=== PATIENT | male | born 1945 | race Caucasian/White ===

== ENCOUNTER 2017-09-10 15:25 | Emergency (ER) | payer OTHER ==
[~2017-09-10 15:25] MED LIST: AMI10 PO; ASPI-715 PO; ATEN-65 PO; ATR80PT PO; AUG875 PO; AZI250 PO; AZIT500T47 PO; BEN20 PO; BUPR-147 PO; BUS10 PO; CYC10 PO; DUL20 PO; FAM20 PO; GEM600 PO; GEMF600T91 PO; GLI5 PO; HCTZ25 PO; HYDR-2954 PO; HYDR-2966 PO; HYDR-3074 PO; HYDR2TAB74 PO; HYDR473S4 PO; IBU800 PO; IBUP800T37 PO; INSU100C14 SQ; INSU100I35 SQ; KET10 PO; LANI SC; LANI SUBQ; LOR5/325 PO; METF-1 PO; METF-420 PO; NOR5/325 PO; NOVALOG SC; ONDA-2 PO; ONDA4TAB PO; PARO40TA86 PO; PEN250 PO; PER PO; PRE10 PO; PRE20 PO; PRE50 PO; PROAIRPT IH; PROXETINE PO; QUIN5TAB19 PO; ROSI2TAB11 PO; [UNRECOGNIZED DRUG - CODE] PO; [UNRECOGNIZED DRUG - OTHER]
[2017-09-10 15:31] VITALS: BP 134/110
[2017-09-10] MEDS ORDERED: ONDANSETRON 4 MG ODT TABDP SL ONE (15:45)
[2017-09-10] MEDS ORDERED: HYDR-4309 PO (15:56)
[2017-09-10] MEDS ORDERED: BACL-1 PO (15:56)
--- NOTE | 2017-09-10 15:57 | ER Report ---
History and Physical Time Seen By MD: 15:35 Hx. of Stated Complaint: LOWER BACK PAIN, L4-S1 - HERNIATED DISKS, PINCHING SIATIC NERVE FOR 2 DAYS HPI/ROS CHIEF COMPLAINT: Back pain HISTORY OF PRESENT ILLNESS: Pt is a 71-year-old male who presents the ED with complaint of back pain for the past day. 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 He has seen [facility] and spine for this and is trying to get some procedures approved through the [facility]. He states that he does get flareups intermittently but rarely needs to come in for this. He has not taken any medication at home for this. Patient states that he has had lecture on Vicodin in the past as well as steroids. He states that he will get intermittent numbness and tingling into his right leg. He also will note some intermittent numbness and tingling to his left leg. He has had some nausea recently which is related to the pain. He denies any vomiting. He denies any urinary symptoms. Patient has not noted any urinary or bowel incontinence. REVIEW OF SYSTEMS: Constitutional: No fever, no chills. Cardiovascular: No chest pain, no palpitations. Respiratory: No cough, no shortness of breath. Gastrointestinal: No abdominal pain, no vomiting. Genitourinary: No hematuria. Musculoskeletal: See history of present illness. Skin: No rashes. Neurological: No headache. Allergies: Coded Allergies: iodine (Verified Allergy, Severe, BLISTERING, 09/10/17) meperidine (Verified Allergy, Intermediate, REDNESS, 09/10/17) Home Meds Active Scripts Baclofen (BACLOFEN) 10 Mg Tablet, 10 MG PO TID, #15 TAB Prov:STEVIE DAVE PA-C 09/10/17 Hydrocodone Bit/Acetaminophen (NORCO 5-325 TABLET) 1 Each Tablet, 1 EACH PO Q4- 6H Y for PAIN, #10 TAB Prov:STEVIE DAVE PA-C 09/10/17 Reported Medications Insulin Glargine (LANTUS) 100 Unit/Ml Soln, 50 UNIT SUBQ BID, ML 10/06/16 Insulin Aspart 100 Un/Ml Pen (NOVOLOG FLEXPEN) 100 Unit/1 Ml Insuln.pen, 30 UNIT SQ 10/06/16 Ibuprofen (IBUPROFEN) 800 Mg Tablet, 1 TAB PO PRN, TAB 06/07/16 Duloxetine Hcl (CYMBALTA) 20 Mg Capcr, 20 MG PO QDAY, #5 CAP 06/07/16 Atorvastatin (LIPITOR) 80 Mg Tab, 1 TAB PO QDAY, TAB 06/07/16 Bupropion Hcl (BUPROPION HCL) 75 Mg Tablet, 150 MG PO QDAY, TAB 06/07/16 Valacyclovir Hcl (Valacyclovir) 1,000 Mg Tablet, 500 MG PO DAILY, 0 Refills 03/05/11 Atenolol (Atenolol) 25 Mg Tablet, 25 MG PO DAILY, 0 Refills 03/05/11 Paroxetine Hcl (Paroxetine Hcl) 40 Mg Tablet, 40 MG PO QDAY, 0 Refills 03/05/11 Hydrochlorothiazide (Hydrochlorothiazide) 25 Mg Tablet, 25 MG PO DAILY, 0 Refills 03/05/11 Buspirone Hcl (Buspar) 10 Mg Tablet, 10 MG PO BID, 0 Refills 03/05/11 Metformin Hcl (Glucophage) 1,000 Mg Tablet, 1000 MG PO BIDBS, 0 Refills 03/05/11 Reviewed Nurses Notes: Yes Old Medical Records Reviewed: Yes Hx Smoking: No Smoking Status: Never Smoker Hx Substance Use Disorder: No Hx Alcohol Use: No Constitutional Vital Sign - Last 24 Hours 09/10/17 15:31 Temp 99.4 Pulse 103 Resp 18 B/P (MAP) 134/110 Pulse Ox 93 O2 Delivery Room Air Physical Exam General Appearance: The patient is alert, has no immediate need for airway protection and no signs of toxicity. Patient appears to be in mild distress. Respiratory: There are no retractions, lungs are clear to auscultation. Cardiovascular: Regular rate and rhythm. Gastrointestinal: Abdomen is soft and non tender, no masses, bowel sounds normal. Neurological: Cranial nerves II through XII intact. Skin: Warm and dry, no rashes. Musculoskeletal: Neck is supple non tender. Extremities are nontender, nonswollen and have full range of motion. There is some pain with bilateral paravertebral lumbar areas. Full range of motion with some pain. Slightly positive left straight leg raise test noted. 2+ patellar reflexes bilaterally. DIFFERENTIAL DIAGNOSIS: After history and physical exam differential diagnosis was considered for back pain including but not limited to muscular pain, herniated disc, spine fracture, intra-abdominal causes and urinary tract infection. Medical Decision Making ED Course/Re-evaluation ED Course Discussed with patient that we can give him some pain relief and nausea relief here with Percocet 5/325 and Zofran 4 mg by mouth and will send him home with some medication to take as well. Follow-up with his primary care provider [facility] provider for further pain relief. Decision to Disposition Date: Sep 10, 2017 Decision to Disposition Time: 15:54 Depart Departure Latest Vital Signs Vital Signs Date Time Temp Pulse Resp B/P (MAP) Pulse Ox O2 Delivery O2 Flow Rate FiO2 09/10/17 15:31 99.4 103 18 134/110 93 Room Air Impression: Primary Impression: Chronic back pain Condition: Improved Disposition: HOME OR SELF-CARE New Scripts Baclofen (BACLOFEN) 10 Mg Tablet 10 MG PO TID, #15 TAB Prov: STEVIE DAVE PA-C 09/10/17 Hydrocodone Bit/Acetaminophen (NORCO 5-325 TABLET) 1 Each Tablet 1 EACH PO Q4-6H Y for PAIN, #10 TAB Prov: STEVIE DAVE PA-C 09/10/17 Patient Instructions: Back Pain (ED), Chronic Back Pain (ED) Additional Instructions: Rest, heat, ice. Follow-up with primary care provider and with a electronic specialist in 2-3 days. If having any worsening or concerning symptoms may return the Emergency Department. Problem Qualifiers Primary Impression: Chronic back pain Back pain location: low back pain Back pain laterality: unspecified Sciatica presence: with sciatica Sciatica laterality: sciatica of left side Qualified Codes: M54.42 - Lumbago with sciatica, left side; G89.29 - Other chronic pain STEVIE DAVE PA-C Sep 10, 2017 15:56
== END 2017-09-10 16:12 | disposition home or self-care (01) ==
LOC: ER 15:31
DX: M54.42 Lumbago with sciatica, left side (principal); G89.29 Other chronic pain
CPT/HCPCS: 99283; S0119

== ENCOUNTER 2018-07-19 18:17 | Emergency (ER) | payer OTHER ==
[~2018-07-19 18:17] MED LIST changes: +BACL-1 PO; +HYDR-653 PO
--- NOTE | 2018-07-19 18:30 | ER Report ---
History and Physical Time Seen By MD: 18:25 Hx. of Stated Complaint: suicidal ideation with access to plan. continued anxiety and chest pain HPI/ROS CHIEF COMPLAINT: Chest pain HISTORY OF PRESENT ILLNESS: 72-year-old male presents ambulatory to the ER complaining of chest pain. Patient under a great deal of anxiety. He's been having financial problems. His truck was repossessed. Last night he is expressing suicidal ideation and the police officers visited him. He spoke with his counselor on the phone for an hour and was not detained. Patient developed left-sided chest pain, sharp in nature, aggravated by breathing. Patient has a history of chronic low back pain. 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 REVIEW OF SYSTEMS: Respiratory: No cough, no dyspnea. Cardiovascular: As above Gastrointestinal: No vomiting, no abdominal pain. Musculoskeletal: No back pain. Allergies: Coded Allergies: iodine (Verified Allergy, Severe, BLISTERING, 09/10/17) meperidine (Verified Allergy, Intermediate, REDNESS, 09/10/17) Home Meds Active Scripts Baclofen (BACLOFEN) 10 Mg Tablet, 10 MG PO TID, #15 TAB Prov:STEVIE DAVE PA-C 09/10/17 Hydrocodone Bit/Acetaminophen (NORCO 5-325 TABLET) 1 Each Tablet, 1 EACH PO Q4- 6H PRN for PAIN, #10 TAB Prov:STEVIE DAVE PA-C 09/10/17 Reported Medications Insulin Glargine (LANTUS) 100 Unit/Ml Soln, 50 UNIT SUBQ BID, ML 10/06/16 Insulin Aspart 100 Un/Ml Pen (NOVOLOG FLEXPEN) 100 Unit/1 Ml Insuln.pen, 30 UNIT SQ 10/06/16 Ibuprofen (IBUPROFEN) 800 Mg Tablet, 1 TAB PO PRN, TAB 06/07/16 Duloxetine Hcl (CYMBALTA) 20 Mg Capcr, 20 MG PO QDAY, #5 CAP 06/07/16 Atorvastatin (LIPITOR) 80 Mg Tab, 1 TAB PO QDAY, TAB 06/07/16 Bupropion Hcl (BUPROPION HCL) 75 Mg Tablet, 150 MG PO QDAY, TAB 06/07/16 Valacyclovir Hcl (Valacyclovir) 1,000 Mg Tablet, 500 MG PO DAILY, 0 Refills 03/05/11 Atenolol (Atenolol) 25 Mg Tablet, 25 MG PO DAILY, 0 Refills 03/05/11 Paroxetine Hcl (Paroxetine Hcl) 40 Mg Tablet, 40 MG PO QDAY, 0 Refills 03/05/11 Hydrochlorothiazide (Hydrochlorothiazide) 25 Mg Tablet, 25 MG PO DAILY, 0 Refills 03/05/11 Buspirone Hcl (Buspar) 10 Mg Tablet, 10 MG PO BID, 0 Refills 03/05/11 Metformin Hcl (Glucophage) 1,000 Mg Tablet, 1000 MG PO BIDBS, 0 Refills 03/05/11 Past Medical/Surgical History Past medical history: Type II diabetes, insulin required, depression, hyperlipidemia, anxiety, hypertension, 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 Resp 23 B/P (MAP) 174/96 (122) 158/88 (111) O2 Delivery Room Air 07/19/18 07/19/18 07/19/18 07/19/18 18:32 18:45 18:47 19:00 Pulse 100 ??? Resp 33 B/P (MAP) ???/??? (6565) 162/90 (114) Pulse Ox 93 07/19/18 07/19/18 07/19/18 07/19/18 19:02 19:15 19:17 19:30 Pulse 91 93 B/P (MAP) 161/87 (111) 144/62 (89) Pulse Ox 93 92 07/19/18 07/19/18 07/19/18 07/19/18 19:32 19:45 19:47 19:52 Pulse 84 88 89 B/P (MAP) 141/71 (94) Pulse Ox 96 95 95 07/19/18 07/19/18 07/19/18 07/19/18 20:00 20:07 20:15 20:22 Pulse 80 91 B/P (MAP) 139/68 (91) 151/79 (103) Pulse Ox 95 95 07/19/18 07/19/18 07/19/18 07/19/18 20:30 20:37 20:45 20:52 Pulse 86 86 B/P (MAP) 157/74 (101) 156/83 (107) Pulse Ox 92 92 07/19/18 07/19/18 07/19/18 07/19/18 21:00 21:07 21:15 21:22 Pulse 86 86 B/P (MAP) 151/84 (106) 163/81 (108) Pulse Ox 93 92 07/19/18 07/19/18 07/19/18 07/19/18 21:30 21:37 21:45 21:50 Pulse 85 85 B/P (MAP) 149/86 (107) 163/83 (109) Pulse Ox 93 93 07/19/18 07/19/18 07/19/18 07/19/18 22:00 22:05 22:15 22:21 Pulse 89 B/P (MAP) 160/83 (108) 138/87 (104) Pulse Ox 92 93 O2 Delivery Room Air Physical Exam General Appearance: The patient is alert, has no immediate need for airway protection and no current signs of toxicity. Vital signs stable, afebrile, pulse ox normal HEENT: Pupils equal and round no injection. TMs normal, oropharynx with mild erythema Respiratory: Chest is non tender, lungs are clear to auscultation. No chest wall tenderness Cardiac: regular rate and rhythm Gastrointestinal: Abdomen is soft and non tender, no masses, bowel sounds normal. Musculoskeletal: Neck: Neck is supple and non tender. Extremities have full range of motion and are non tender. No edema, no calf tenderness Skin: No rashes or lesions. DIFFERENTIAL DIAGNOSIS: After history and physical exam differential diagnosis was considered for chest pain including but not limited to myocardial ischemia, pericarditis pulmonary embolus, chest wall pain, pleural inflammation and pulmonary infectious causes. Medical Decision Making Data Points Result Diagram: 07/19/18183407/19/182020 Laboratory Hematology Test 07/19/18 18:35 07/19/18 20:16 07/19/18 20:21 Red Blood Count 4.97 M/uL (4.00-5.60) Mean Corpuscular Volume 93.4 fL (80.0-96.0) Mean Corpuscular Hemoglobin 31.5 pg (26.0-33.0) Mean Corpuscular Hemoglobin Concent 33.8 g/dL (32.0-36.0) Red Cell Distribution Width 15.6 % (11.5-14.5) Mean Platelet Volume 8.3 fL (7.2-11.1) Neutrophils (%) (Auto) 63.0 % (39.4-72.5) Lymphocytes (%) (Auto) 22.3 % (17.6-49.6) Monocytes (%) (Auto) 8.5 % (4.1-12.4) Eosinophils (%) (Auto) 5.0 % (0.4-6.7) Basophils (%) (Auto) 1.2 % (0.3-1.4) Nucleated RBC Relative Count (auto) 0.1 /100WBC Neutrophils # (Auto) 6.5 K/uL (2.0-7.4) Lymphocytes # (Auto) 2.3 K/uL (1.3-3.6) Monocytes # (Auto) 0.9 K/uL (0.3-1.0) Eosinophils # (Auto) 0.5 K/uL (0.0-0.5) Basophils # (Auto) 0.1 K/uL (0.0-0.1) Nucleated RBC Absolute Count (auto) 0.01 K/uL D-Dimer Quantitative (PE/DVT) 0.35 ug/ml (0-0.50) Sodium Level 136 mmol/L (137-145) Potassium Level 4.0 mmol/L (3.5-5.0) Chloride Level 100 mmol/L (98-107) Carbon Dioxide Level 25 mmol/L (22-30) Blood Urea Nitrogen 24 mg/dl (9-21) Creatinine 1.10 mg/dl (0.66-1.25) Glomerular Filtration Rate Calc > 60.0 Calcium Level 9.2 mg/dl (8.4-10.2) Total Bilirubin 0.5 mg/dl (0.2-1.3) Aspartate Amino Transf (AST/SGOT) 22 U/L (0-35) Alanine Aminotransferase (ALT/SGPT) 30 U/L (0-56) Alkaline Phosphatase 81 U/L (0-126) Troponin I < 0.012 ng/ml B-Type Natriuretic Peptide 13 pg/ml (0-100) Total Protein 6.9 g/dl (6.3-8.2) Albumin 4.3 g/dl (3.5-5.0) Whole Blood Glucose 327 mg/DL (75-110) Random Glucose 326 mg/dl (75-110) Chemistry Test 07/19/18 18:35 07/19/18 20:16 White Blood Count 10.4 k/uL (4.5-11.0) Red Blood Count 4.97 M/uL (4.00-5.60) Hemoglobin 15.7 g/dL (14.0-18.0) Hematocrit 46.4 % (42.0-52.0) Mean Corpuscular Volume 93.4 fL (80.0-96.0) Mean Corpuscular Hemoglobin 31.5 pg (26.0-33.0) Mean Corpuscular Hemoglobin Concent 33.8 g/dL (32.0-36.0) Red Cell Distribution Width 15.6 % (11.5-14.5) Platelet Count 251 K/uL (150-450) Mean Platelet Volume 8.3 fL (7.2-11.1) Neutrophils (%) (Auto) 63.0 % (39.4-72.5) Lymphocytes (%) (Auto) 22.3 % (17.6-49.6) Monocytes (%) (Auto) 8.5 % (4.1-12.4) Eosinophils (%) (Auto) 5.0 % (0.4-6.7) Basophils (%) (Auto) 1.2 % (0.3-1.4) Nucleated RBC Relative Count (auto) 0.1 /100WBC Neutrophils # (Auto) 6.5 K/uL (2.0-7.4) Lymphocytes # (Auto) 2.3 K/uL (1.3-3.6) Monocytes # (Auto) 0.9 K/uL (0.3-1.0) Eosinophils # (Auto) 0.5 K/uL (0.0-0.5) Basophils # (Auto) 0.1 K/uL (0.0-0.1) Nucleated RBC Absolute Count (auto) 0.01 K/uL D-Dimer Quantitative (PE/DVT) 0.35 ug/ml (0-0.50) Glomerular Filtration Rate Calc > 60.0 Calcium Level 9.2 mg/dl (8.4-10.2) Total Bilirubin 0.5 mg/dl (0.2-1.3) Aspartate Amino Transf (AST/SGOT) 22 U/L (0-35) Alanine Aminotransferase (ALT/SGPT) 30 U/L (0-56) Alkaline Phosphatase 81 U/L (0-126) Troponin I < 0.012 ng/ml B-Type Natriuretic Peptide 13 pg/ml (0-100) Total Protein 6.9 g/dl (6.3-8.2) Albumin 4.3 g/dl (3.5-5.0) Whole Blood Glucose 327 mg/DL (75-110) Coagulation Test 07/19/18 18:35 D-Dimer Quantitative (PE/DVT) 0.35 ug/ml EKG/Imaging EKG Interpretation 12 lead EK Rhythm: normal sinus rhythm [place]: normal QRS: normal, prolonged QT 490 ST segments: normal, comparison to previous EKG dated 11/15/13, no significant change, QT prolongation was noted on his previous EKG of 495 ms Imaging X-ray: Two-view chest x-ray was obtained. I viewed the images myself on the PACS system. My interpretation of the images is: Trait, no effusion, normal mediastinum. The radiologist interpretation had no clinically significant variation from this interpretation. ED Course/Re-evaluation Clinical Indication for ER IV: Hydration, IV Access ED Course Patient was minute to an examination room. H&P was done. The differential diagnoses was considered. On clinical examination, patient appears of mild discomfort. He has chest pain. His EKG is unremarkable for evidence of ischemia and is unchanged from previous EKGs. Diagnostic evaluation is undertaken. Patient's glucose returns at 431. He receives a liter of saline and 10 of regular insulin IV. On repeat, his glucose is 328. His chest pain resolved with Toradol and Percocet orally. Patient was expressing suicidal ideation last night. He still expressing some suicidal ideation, although I do not think he is high risk. He spoke with his counselor Angelique Sullivan last night. I discussed his case with her today. She will follow-up with him later today to make sure he is okay. 07/19/2018 7:36:38 pm goldie with Angelique Sullivan nurse practitioner [facility] Decision to Disposition Date: Jul 19, 2018 Decision to Disposition Time: 19:24 Depart Departure Latest Vital Signs Vital Signs Date Time Temp Pulse Resp B/P (MAP) Pulse Ox O2 Delivery O2 Flow Rate FiO2 07/19/18 22:21 93 Room Air 07/19/18 22:15 138/87 (104) 07/19/18 22:05 89 07/19/18 18:32 33 Impression: Primary Impression: Chest pain Additional Impressions: Depression with suicidal ideation Insulin-requiring or dependent type II diabetes mellitus Hyperglycemia Condition: Improved Disposition: HOME OR SELF-CARE Patient Instructions: Chest Pain (ED), Diabetic Hyperglycemia (ED) Additional Instructions: Follow-up with mental health provider as planned Problem Qualifiers Primary Impression: Chest pain Chest pain type: unspecified Qualified Codes: R07.9 - Chest pain, unspecified LAKESHIA VIDES DO Jul 19, 2018 18:30
[2018-07-19] MEDS ORDERED: ASPIRIN 81 MG CHEW PO ONE (18:35)
[2018-07-19 18:44] LABS: PLATELET COUNT, AUTOMATED 251 K/uL (150-450)
[2018-07-19] MEDS ORDERED: INSU HUM REG 100 U/ML(ER ONLY) 10 ML VIAL IVP ONE (19:00)
[2018-07-19] MEDS ORDERED: KETOROLAC 30 MG/ML VIAL IVP ONE (19:10)
--- NOTE | 2018-07-19 19:12 | EKG ---
FACILITY: [facility] - [place] PATIENT NAME: ROXY GUTIERREZ : [id number] MR: [id number] V: [id number] EXAM DATE: ORDERING PHYSICIAN: LAKESHIA VIDES TECHNOLOGIST: CHIRAG Test Reason : CHEST PAIN Blood Pressure : / mmHG Vent. Rate : 098 BPM Atrial Rate : 098 BPM P-R Int : 136 ms QRS Dur : 094 ms QT Int : 384 ms P-R-T Axes : 038 004 003 degrees QTc Int : 490 ms Sinus rhythm Borderline left axis Prolonged QTc Artifact in several leads - repeat if needed Abnormal ECG Confirmed by ELISABETH HUERTA ([id number]) on 07/19/2018 9:38:38 PM Referred By: SANDEE Confirmed By:ELISABETH HUERTA
[2018-07-19] MEDS ORDERED: NS(*) 0.9% 1000 ML BAG 1,000 ML IV ONE (19:15)
--- NOTE | 2018-07-19 19:16 | RADIOLOGY IMAGING REPORT ---
[facility] PATIENT NAME: Richard Gutierrez : 1945 MR: [id number] V: [id number] EXAM DATE: ORDERING PHYSICIAN: LAKESHIA VIDES TECHNOLOGIST: Location: [facility] [place] Patient: Richard Gutierrez : 1945 Visit/Account:[id number] Date of Sevice: 07/19/2018 EXAMINATION: Chest 2 Views HISTORY: Chest pain. COMPARISON: 12/26/2009. FINDINGS: Calcified granulomas in both lungs. The lungs are otherwise clear. No focal consolidation or pleura l fluid. No pneumothorax. Normal cardiomediastinal silhouette, with normal heart size and pulmonary vascularity. No acute osseous findings. Multilevel degenerative changes along the spine. IMPRESSION: No evidence of acute cardiopulmonary disease. Report Dictated By: Elmo Mariano MD at 07/19/2018 7:11 PM Report E-Signed By: Elmo Mariano MD at 07/19/2018 7:12 PM [id number]
[2018-07-19 22:15] VITALS: BP 138/87
== END 2018-07-19 22:30 | disposition home or self-care (01) ==
LOC: ER 18:27
DX: R07.9 Chest pain, unspecified (principal); F32.9 Major depressive disorder, single episode, unspecified; R45.851 Suicidal ideations; E11.65 Type 2 diabetes mellitus with hyperglycemia; Z79.4 Long term (current) use of insulin
CPT/HCPCS: 36415; 36416; 71046; 82948; 83880; 84484; 85025; 85379; 93005; 96361; 96374; 96375; 99284; J1815; J1885; J7030; 82040; 82247; 82310; 82374; 82435; 82565; 82947; 84075; 84132; 84155; 84295; 84450; 84460; 84520